=== PATIENT | male | born 1970 | race African-American/Black ===

== ENCOUNTER 2022-06-16 20:32 | Emergency (ER) | payer OTHER ==
[~2022-06-16] VITALS: Ht 182.9 cm; Wt 113.0 kg
[2022-06-16 22:30] LABS: BASOPHILS % 1.3 % (0.0-2.0); EOSINOPHILS % 1.2 % (0.0-5.0); HEMATOCRIT. 43.8 % (42.0-52.0); HEMOGLOBIN. 15.1 g/dL (14.0-18.0); LYMPHOCYTES % 36.6 % (20.0-50.0); MEAN CORPUSCULAR HEMOGLOBIN 30.3 pg (28.0-32.0); MEAN PLATELET VOLUME 7.6 fl (7.4-10.4); MONOCYTES % 11.8 % (2.0-8.0); NEUTROPHILS % 49.1 % (40.0-76.0); PLATELET 224 x1000/uL (130-400); RED BLOOD CELL COUNT 4.97 mill/uL (4.7-6.1); RED CELL DISTRIBUTION WIDTH 13.2 % (11.6-14.6)
[2022-06-16 22:38] LABS: PROTHROMBIN TIME 10.6 sec (9.6-11.0)
[2022-06-16 22:42] LABS: CHLORIDE 104 mEq/L (98-107)
[2022-06-17 05:35] VITALS: BP 115/72
== END 2022-06-17 06:02 | disposition short-term general hospital (02) ==
LOC: ER 20:32 → CANBEDREQ 06-17 07:40
DX: Z45.02 Encounter for adjustment and management of automatic implantable cardiac defibrillator (principal); R00.2 Palpitations
CPT/HCPCS: 36415; 71045; 80053; 83880; 84484; 85025; 85610; 93005; 99285; Z7610

== ENCOUNTER 2024-12-20 19:30 | Emergency (ER) | payer OTHER ==
[~2024-12-20] VITALS: Ht 190.5 cm; Wt 113.0 kg
[2024-12-20 19:35] VITALS: TEMP 36.5; O2SAT 99
[2024-12-20 20:47] LABS: BASOPHILS % 1.3 % (0.0-2.0); EOSINOPHILS % 1.7 % (0.0-5.0); HEMATOCRIT. 40.9 % (42.0-52.0); HEMOGLOBIN. 13.8 g/dL (14.0-18.0); LYMPHOCYTES % 47.3 % (20.0-50.0); MEAN CORPUSCULAR HEMOGLOBIN 29.8 pg (28.0-32.0); MEAN CORPUSCULAR HGB CONC 33.8 g/dL (31.0-37.0); MEAN CORPUSCULAR VOLUME 88.3 fL (80.0-94.0); MEAN PLATELET VOLUME 7.6 fl (7.4-10.4); MONOCYTES % 10.2 % (2.0-8.0); NEUTROPHILS % 39.5 % (40.0-76.0); PLATELET 230 x1000/uL (130-400); RED BLOOD CELL COUNT 4.63 mill/uL (4.7-6.1); RED CELL DISTRIBUTION WIDTH 13.5 % (11.6-14.6); WHITE BLOOD COUNT 4.2 x1000/uL (4.5-11.0)
[2024-12-20 20:57] LABS: CARBON DIOXIDE 29 mEq/L (21-32); CHLORIDE 107 mEq/L (98-107); POTASSIUM 3.9 mEq/L (3.5-5.1); SODIUM 142 mEq/L (136-145)
[2024-12-20 20:58] LABS: CALCIUM 8.8 mg/dL (8.7-10.4)
[2024-12-20 21:02] LABS: CREATININE 1.1 mg/dL (0.6-1.3); GLUCOSE 98 mg/dL (70-105)
[2024-12-20 21:03] LABS: UREA NITROGEN BLOOD 15 mg/dL (9-23)
[2024-12-20 21:06] LABS: TROPONIN I HIGH SENSITIVITY < 4 ng/L (3.0-53)
[2024-12-21 00:51] LABS: TROPONIN I HIGH SENSITIVITY < 4 ng/L (3.0-53)
[2024-12-21 01:33] VITALS: BP 126/82; PULSE 60; RESP 18; O2SAT 98
[2024-12-21] MEDS ORDERED: ACET-2708 MT (02:10)
[2024-12-21] MEDS ORDERED: IOHEXOL-350 100 ML BOTTLE ONE (04:44)
== END 2024-12-21 02:28 | disposition home or self-care (01) ==
LOC: ER 19:30
DX: R51.9 Headache, unspecified (principal); I10 Essential (primary) hypertension; R06.02 Shortness of breath; F10.90 Alcohol use, unspecified, uncomplicated; Z72.0 Tobacco use; Z95.810 Presence of automatic (implantable) cardiac defibrillator; Y90.9 Presence of alcohol in blood, level not specified
CPT/HCPCS: 99285; 71275; 71045; 80048; 83880; 85025; 85379; 84484; 36415; 70450; 93005; Q9967